=== PATIENT | male | born 1955 | race African-American/Black ===

== ENCOUNTER 2019-09-24 12:50 | Observation (INO) | payer OTHER ==
[~2019-09-24] VITALS: Ht 172.7 cm; Wt 89.9 kg
[2019-09-24 12:51] VITALS: BP 188/92
[2019-09-24] MEDS ORDERED: GLUCOPHAGE XR750 MG PO (12:56)
[2019-09-24] MEDS ORDERED: PRINIVIL20 MG PO (12:57)
[2019-09-24] MEDS ORDERED: XARELTO20 MG PO (12:57)
[2019-09-24 13:10] LABS: ABSOLUTE EOSINOPHILS 0.1 thou/uL (0.0-0.7); ABSOLUTE LYMPHOCYTES 2.9 thou/uL (0.8-5.3); ABSOLUTE MONOCYTES 0.4 thou/uL (0.0-1.2); ABSOLUTE NEUTROPHILS 1.8 thou/uL (1.6-8.1); BASOPHILS 0.7 %; EOSINOPHILS 2.9 %; HEMOGLOBIN 13.3 gm/dL (14.0-18.0); LYMPHOCYTES 55.1 %; MCH 24.5 pg (26.0-34.0); MCHC 33.2 g/dL (28.0-37.0); MCV 73.9 fL (80.0-100.0); MPV 7.6 fl. (7.2-11.1); NUCLEATED RBCS 0 /100WBC; PLATELET COUNT* 205 thou/uL (150-400); POLYS 34.3 %; RBC 5.42 mil/uL (4.50-6.00); RDW-CV 18.8 % (10.5-14.5); WBC 5.2 thou/uL (4.0-11.0)
[2019-09-24 13:17] LABS: CALCIUM 8.4 mg/dL (8.5-10.1); CREATININE 1.5 mg/dL (0.6-1.3); POTASSIUM 4.1 mmol/L (3.5-5.1)
[2019-09-24 13:19] LABS: APTT 37.5 Seconds (25.0-31.3); INR 1.4; PROTIME 14.2 Seconds (9.20-11.50)
[2019-09-24 13:28] LABS: ALBUMIN 4.3 g/dL (3.4-5.0); MAGNESIUM 1.7 mg/dL (1.8-2.4); TOTAL PROTEIN 8.1 g/dL (6.4-8.2)
[2019-09-24 15:55] VITALS: BP 184/83
[2019-09-24 16:07] VITALS: BP 174/79
[2019-09-24] MEDS ORDERED: ASA81BEC PO (16:29)
[2019-09-24] MEDS ORDERED: SIMVASTATIN80 MG PO (16:30)
[2019-09-24 18:30] VITALS: BP 151/83
--- NOTE | 2019-09-24 18:36 | NUR ---
PATIENT ARRIVED FROM THE ER THIS AFTERNOON. PATIENT SETTLED TO ROOM AND HISTORY, ASSESSMENT AND VITALS COMPLETED AND DOCUMENTED. HOME MED LIST UPDATED. PATIENT IS UP AD SARA IN ROOM. PATIENT HAD COMPLAINTS OF WORSENING CHEST PAIN AFTER ARRIVAL FROM ER. DR RUBIO NOTIFIED AND ORDERS RECEIVED. EKG IN CHART. PATIENT STATES PAIN IS BETTER AT THIS TIME. BLOOD PRESSURE ELEVATED UPON ARRIVAL, LISINOPRIL GIVEN AND BLOOD PRESSURE IMPROVED TO 151/83. PATIENT HAS GOOD APPETITE. PATIENT DENIES ANY NEEDS AT THIS TIME. CALL LIGHT WITHIN REACH.
[2019-09-24 21:00] VITALS: BP 176/87
[2019-09-25] VITALS (8 sets, daily range): BP systolic 142–205; BP diastolic 70–91
[2019-09-25 04:14] LABS: ABSOLUTE EOSINOPHILS 0.1 thou/uL (0.0-0.7); ABSOLUTE MONOCYTES 0.5 thou/uL (0.0-1.2); ABSOLUTE NEUTROPHILS 2.3 thou/uL (1.6-8.1); BASOPHILS 0.7 %; EOSINOPHILS 2.1 %; HEMATOCRIT 38.1 % (42.0-52.0); HEMOGLOBIN 12.3 gm/dL (14.0-18.0); LYMPHOCYTES 40.3 %; MCH 23.8 pg (26.0-34.0); MCHC 32.4 g/dL (28.0-37.0); MCV 73.5 fL (80.0-100.0); MONOCYTES 10.2 %; MPV 7.7 fl. (7.2-11.1); NUCLEATED RBCS 0 /100WBC; PLATELET COUNT* 193 thou/uL (150-400); POLYS 46.7 %; RBC 5.18 mil/uL (4.50-6.00); RDW-CV 18.6 % (10.5-14.5); WBC 4.9 thou/uL (4.0-11.0)
[2019-09-25 04:28] LABS: CALCIUM 8.5 mg/dL (8.5-10.1); CREATININE 1.4 mg/dL (0.6-1.3); POTASSIUM 4.1 mmol/L (3.5-5.1)
--- NOTE | 2019-09-25 07:03 | NUR ---
No acute event this shift. Pt no chest pain overnight. Pt SR, BBB on tele, Sleep most of shift. PT NPO for cardiology consult. Call light within reach, will continue to monitor.
--- NOTE | 2019-09-25 09:46 | NUR ---
ASSUMED PT CARE AT 0730, PT AOX4 AND HAS NO C/O PAIN OR SHORTNESS OF BREATH. PT CURRENTLY NPO FOR CARDIOLOGY CONSULT TODAY, MORNING MEDS STILL GIVEN W/ SMALL SIP OF WATER. PT GOAL IS TO WORK W/ CARDIOLOGY AND TO REMAIN FREE FROM CHEST PAIN. AM ASSESSMENT CHARTED, MEDS PER MAR, HOURLY ROUNDING OBSERVED, PT UP AD SARA, CALL LIGHT W/IN REACH, WILL CONTINUE POC.
[2019-09-25 09:59] LABS: CHOLESTEROL 222 mg/dL (<200); HDL CHOLESTEROL 73 mg/dL (>40); LDL CHOLESTEROL 130 mg/dL (<100); TRIGLYCERIDE 99 mg/dL (<150); VLDL 20 mg/dL (<40)
[2019-09-25 10:08] LABS: SERUM ASSESSMENT Clear
--- NOTE | 2019-09-25 11:07 | EKG ---
[place] [address] ELECTROCARDIOGRAM REPORT Name: NACHO,JAYLA Room: [address] M..#: [id number] Admission: 09/24/19 Attend Phys: Kevyn Medina, Discharge: Date of : 55 Date of Service: 09/24/19 1252 Report #: [id number] THIS REPORT FOR: //name// [facility] ED Test Date: 2019-09-24 Test Time: 12:52:25 Pat Name: JAYLA GRIFFITH Department: Room: 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 : 1955 Requested By: Ramy Ortiz Order Number: [id number] MD: Keo Palacios Measurements Intervals [place] Rate: 97 P: 17 OK: 186 QRS: -69 QRSD: 131 T: 34 QT: 379 QTc: 482 Interpretive Statements Sinus tachycardia Ventricular premature complex Probable left atrial enlargement RBBB and LAFB Inferior infarct, old possible No previous ECG available for comparison Electronically Signed On 09-25-2019 11:07:17 CDT by Keo Palacios [email or web address] <ELECTRONICALLY SIGNED> By: Keo Palacios MD, [facility] 09/25/19 1107 1252 1252 Keo Palacios MD, [facility] /EPI
--- NOTE | 2019-09-25 11:11 | EKG ---
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: : 1955 Requested By: Kevyn Medina Order Number: [id number] MD: Keo Palacios Measurements Intervals [place] Rate: 61 P: -7 OR: 185 QRS: -67 QRSD: 133 T: -25 QT: 435 QTc: 439 Interpretive Statements Sinus rhythm RBBB and LAFB Inferior infarct, old Compared to ECG 09/24/2019 12:52:25 Sinus tachycardia no longer present Ventricular premature complex(es) no longer present Myocardial infarct finding still present Electronically Signed On 09-25-2019 11:11:21 CDT by Keo Palacios [email or web address] <ELECTRONICALLY SIGNED> By: Keo Palacios MD, [facility] 09/25/19 1111 11 11 Keo Palacios MD, [facility] /EPI
--- NOTE | 2019-09-25 15:06 | NUR ---
Pt is A&O. Resides at home with his sister. Independent. No DME. 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 No hx of SNF. Goal is home at dc, no needs.
--- NOTE | 2019-09-25 18:35 | NUR ---
NO ACUTE CHANGES THROUGHOUT SHIFT, PT ENDED UP HAVING STRESS TEST DONE, CURRENTLY AWAITING RESULTS, PT WENT DOWN FOR STRESS TEST AT APPROX 1500 AND CAME BACK AT APPROX 1745, BP ELEVATED AT THIS TIME 205/91, PRN HYDRALAZINE GIVEN, WILL CHECK BP IN A MOMENT. PT HAS NO CURRENT C/O PAIN BUT STATES HE FEELS PRESSURE IN HIS HEAD. MEDS PER APR, HOURLY ROUNDING OBSERVED, CALL LIGHT W/IN REACH, WILL CONTINUE POC.
[2019-09-26 00:17] VITALS: BP 168/79
[2019-09-26 04:25] VITALS: BP 178/97
--- NOTE | 2019-09-26 04:40 | NUR ---
ASSUMED CARE OF PT AT 1900. PT IS ALERT AND ORIENTED. VSS. PERRLA. NO COMPLAINTS OF PAIN. UP AD SARA. PT WAS GIVEN HYDRALAZINE FOR ELEVATED BLOOD PRESSURE. PT IS IN SINUS RYTHM ON THE TELEMETRY. PT IS RESTING COMFORTABLY IN BED. RESPIRATIONS ARE EVEN AND NONLABORED. WILL CONTINUE TO MONITOR PT.
[2019-09-26 08:00] VITALS: BP 142/78
--- NOTE | 2019-09-26 08:42 | CARDNUC ---
[place] [address] CARDIAC NUCLEAR IMAGING REPORT Name: JAYLA GRIFFITH Room: [address] M.R.#: [id number] Admission: 09/24/19 Attend Phys: Kevyn Medina, Discharge: Date of : 55 Date of Service: 09/26/19 0842 Report #: [id number] THIS REPORT FOR: cc: Physician not on staff Physician not on staff Tony Moseley MD [facility] ~ APPROVED REPORT Imaging Protocol: Stress Tc-99m/Rest Tc-99m 1 day Study performed: 09/25/2019 11:05:00 Indication: Chest pain, dyspnea. Patient Location: In-Patient Room #: 209 Stress Tech: Cassidy Robertson Stress Nurse: Melody Noel RN Ht: 5 ft 8 in Wt: 198 lbs BSA: 2.03 m2 BMI: 30.10 Medical History Medical History: Angina, CAD s/p NV, Dyspnea, catherization, HLD, HTN, PE, CVA, Nausea, ETOH abuse, IVC filter s/p intracranial hemorrhage, lightheaded/dizzy, Bifasicular Block, Diaphoresis, ankle surgery, DM. Medications: Xarelto, Atorvastatin, Lisinopril, Hydralazine, NTG, Metformin. Allergies: No known drug allergies Cardiac Risk Factors: Age, DM, FHX of CAD, HTN, Hyperlipidemia, SOB, Past Smoker, Bifasicular Block, Dyspnea, Chest pain. Previous Cardiac Procedures: Catherization, Myocardial infarction. Pretest Chest Pain Characteristics: No chest pain Exercise History: Indeterminate Physical Disabilities: s/p ankle surgery, HX CVA, unbalanced gait. Meds Held (24 hrs): NTG. Resting Data Rest SPECT myocardial perfusion imaging was performed in supine position 30 minutes following the intravenous injection of 10.2 mCi of Tc-99m Sestamibi. Time of rest injection: 14:55 The images were gated to evaluate regional [place] [address] CARDIAC NUCLEAR IMAGING REPORT Name: JAYLA GRIFFITH Room: [address] MMarianoRMariano#: [id number] Admission: 09/24/19 Attend Phys: Kevyn Medina, Discharge: Date of : 55 Date of Service: 09/26/19 0842 Report #: [id number] left ventricular ejection fraction. Administration Route: IV Administration Site: Right AC Pharmacologic Stress Pharmacologic stress test was performed by injecting Regadenoson 0.4 mg IV push over 10-15 seconds immediately followed by the intravenous injection of 30.3 mCi of Tc-99m Sestamibi. Time of stress injection: 16:55 Administration Route: IV Administration Site: Right AC Heart Rate at time of stress injection: 115 bpm. Gated Stress SPECT was performed 40 minutes after stress injection. The images were gated to evaluate regional wall motion and calculate left ventricular ejection fraction. Prone imaging was performed. Stress Test Details Stress Test: Pharmacologic stress testing performed using 0.4 mg of regadenoson per 5 mL given IV over 10 seconds. Reason for pharmacologic stress test: s/p ankle surgery, HX CVA, unbalanced gait.. HR Max Heart Rate (APMHR): 157 bpm Resting HR: 66 bpm Target HR (85% APMHR): 133 bpm Max HR Achieved: 115 bpm % of APMHR: 73 Recovery HR: 88 bpm BP Resting BP: 169/97 mmHg Max BP: 168/102 mmHg Recovery BP: 173/97 mmHg ECG Resting ECG: Sinus Rhythm, RBBB Stress ECG: Sinus Tachycardia, RBBB ST Change: None Arrhythmia: None Recovery ECG: Sinus Rhythm, RBBB Recovery ST Change: None Recovery Arrhythmia: None Clinical Reason for Termination: Completed protocol Stress Symptoms: Head fullness/tightness, [place] [address] CARDIAC NUCLEAR IMAGING REPORT Name: NACHO,REMZION Room: [address] M.R.#: [id number] Admission: 09/24/19 Attend Phys: Kevyn Medina, Discharge: Date of : 55 Date of Service: 09/26/19 0842 Report #: [id number] Exercise duration: 00 min 00 sec Exercise capacity: 1.00 METs The patient tolerated Lexiscan infusion without significant cardiac symptoms. Nurse Comments A 63 year old male inpatient presented for a sitting Lexiscan r/t chest pain and dyspnea. Test well tolerated. Recovery required a 60 mg iv push of caffeine for continued HTN, headache and tachycardia, effective. Patient was escorted via wheelchair by staff to Nuclear Medicine for imaging. Patient was stable and stated he felt good at that time. Stress ECG Conclusion The baseline twelve-lead EKG shows sinus rhythm with right bundle branch block. EKGs obtained during and post Lexiscan infusion show sinus rhythm and sinus tachycardia with right bundle branch block. There were no significant ST segment changes when compared to baseline. There were no stress-induced arrhythmias. Study Quality Study: Good Artifact: Mild Diaphragmatic artifact Study Data At rest, the left ventricular ejection fraction was 73%.. Post stress, the left ventricular ejection was 61%.. TID = 1.06. Perfusion Perfusion images show slight photopenia in the inferior wall on supine imaging that resolves with post-rest prone imaging. No other significant defects are identified. Wall Motion Normal left ventricular wall motion. Nuclear Conclusion ECG Findings: negative for ischemia Clinical Findings: negative for ischemia Nuclear Findings: negative for ischemia Exercise Capacity: not assessed Left Ventricular Function: normal Risk Study: low Perfusion images show no defect to suggest infarct or ischemia. Left ventricular systolic function appears normal on gated studies. This [address] [address] CARDIAC NUCLEAR IMAGING REPORT Name: NACHO,JAYLA Room: [address] Abhijit#: [id number] Admission: 09/24/19 Attend Phys: Kevyn Medina, Discharge: Date of : 55 Date of Service: 09/26/19841 Report #: [id number] is a low risk study. <Conclusion> The baseline twelve-lead EKG shows sinus rhythm with right bundle branch block. EKGs obtained during and post Lexiscan infusion show sinus rhythm and sinus tachycardia with right bundle branch block. There were no significant ST segment changes when compared to baseline. There were no stress-induced arrhythmias. <ELECTRONICALLY SIGNED> By: Tony Moseley MD, FACC 09/26/19841 1 1 Tony Moseley MD, FACC /INF
[2019-09-26 09:54] VITALS: BP 142/78
[2019-09-26] MEDS ORDERED: CARVEDILOL12.5 MG PO (10:01)
--- NOTE | 2019-09-26 10:12 | NUR ---
ASSUMED PT CARE AT 0730, PT AOX4 AND HAS NO C/O PAIN OR SHORTNESS OF BREATH. PT BP BETTER TODAY, 142/78. PT GOAL IS TO DC TO HOME TODAY, AM ASSESSMENT CHARTED, MEDS PER MAR, HOURLY ROUNDING OBSERVED, CALL LIGHT W/IN REACH, PT UP AD SARA, WILL CONTINUE POC.
--- NOTE | 2019-09-26 11:09 | NUR ---
DC ORDERS RECEIVED. DC INSTRUCTIONS, CARE NOTES, SCRIPTS AND F/U APPTS GIVEN TO PT, PT COMMUNICATES UNDERSTANDING OF DC TEACHING. PT HAD TO WAIT UNTIL TODAY TO BE DC'D R/T CARDIOLOGY NOT CLEARING HIM UNTIL TODAY. PT DC'D W/ ALL BELONGINGS AND PAPERWORK BY WC W/ NURSING STAFF TO SISTER'S PERSONAL VEHICLE AT APPROX 1100. IV AND MUSIC WORKER REMOVED.
== END 2019-09-26 10:10 | disposition home or self-care (01) ==
LOC: M.ERS 12:50 → M.TBA-ER 13:50 → M.2W 13:50
PROVIDERS: Emergency Medicine Emergency Medical Services; Registered Nurse; ADMIT Internal Medicine; ATTEND Internal Medicine
DX: R07.89 Other chest pain (principal); I10 Essential (primary) hypertension; E11.9 Type 2 diabetes mellitus without complications; R42 Dizziness and giddiness; F10.10 Alcohol abuse, uncomplicated; Z86.711 Personal history of pulmonary embolism; Z79.01 Long term (current) use of anticoagulants